=== PATIENT | female | born 1995 | race Caucasian/White ===

== ENCOUNTER 2016-11-14 14:15 | Emergency (ER) | payer MEDICAID ==
[2016-11-14 14:46] VITALS: RESP 18; O2SAT 97
--- NOTE | 2016-11-14 15:26 | UCPHY ---
H & P Time Seen by Provider: 11/14/16 14:41 Patient Type: Established HPI/ROS: CHIEF COMPLAINT: Sore throat HISTORY OF PRESENT ILLNESS: 21-year-old female presents to Urgent Care by private vehicle complaining of sore throat. Patient denies dysphagia. She has had sore throat over last few days. She does have a history of strep throat in the past. Her younger sister was diagnosed with strep recently whom she is around a lot. She denies nasal congestion, rhinorrhea or cough. Denies rash. Denies abdominal pain, vomiting or diarrhea. REVIEW OF SYSTEMS: Constitutional: No fever, no chills. Eyes: No double or blurry vision. ENT: sore throat. Respiratory: No cough, no shortness of breath. Cardiac: No chest pain. Gastrointestinal: No abdominal pain, vomiting or diarrhea. Genitourinary: No dysuria. Musculoskeletal: No neck or back pain. Skin: No rashes. Neurological: No headache. Past Medical/Surgical History: Negative Social History: Single and lives in [place] Smoking Status: Former smoker Physical Exam: General Appearance: Alert, no distress. Temperature 36.7. Eyes: Pupils equal and round. Extraocular motions are all intact. ENT: Mouth: Mucous membranes moist. Mild posterior pharyngeal injection. No exudate. No muffled voice or trismus. No anterior cervical lymphadenopathy palpated. Respiratory: No wheezing, rhonchi, or rales, lungs are clear to auscultation. Cardiovascular: Regular rate and rhythm. Gastrointestinal: Abdomen is soft and nontender, no masses, no rebound or guarding, bowel sounds normal. Neurological: Alert and oriented x 3, cranial nerves II through XII grossly intact Skin: Warm and dry, no rashes. Musculoskeletal: Nontender to palpate along the cervical, thoracic or lumbar spine. Neck is supple. Extremities: Full range of motion and no peripheral edema. Psychiatric: Patient is oriented X 3, there is no agitation. Constitutional: Initial Vital Signs Temperature (C) 36.7 C 11/14/16 14:30 Heart Rate 87 11/14/16 14:30 Respiratory Rate 18 11/14/16 14:30 Blood Pressure 118/73 11/14/16 14:30 O2 Sat (%) 97 11/14/16 14:30 O2 Delivery Mode Room Air Allergies/Adverse Reactions: Penicillins Allergy (Verified 11/14/16 14:43) succinylcholine Allergy (Verified 11/14/16 14:43) Home Medications: Medication Instructions Recorded Hydrocodone/APAP 5/325 [[place] 1 - 2 tab PO Q4 PRN #30 tab 06/09/16 5/325 (*)] Ibuprofen [Motrin (*)] 600 mg PO Q6 PRN #60 tab 06/09/16 Iron Polysacch/Iron Heme Polyp 28 mg PO DAILY #30 tab 06/09/16 [Bifera] Medical Decision Making ED Course/Re-evaluation: 21-year-old female presents to urgent care with concerns of possible strep throat. Strep swab is pending. Rapid strep test was negative. The patient will call for the results of the throat culture in 48 hours. She was encouraged to return if she had any other change in symptoms or if she felt worse in any way. Differential Diagnosis: Including but not limited to strep pharyngitis, mononucleosis, viral syndrome, influenza, bronchitis, pneumonia, retropharyngeal abscess - Data Points Laboratory Results: 11/14/16 11/14/16 Unknown 15:19 Group A Strep Screen NEGATIVE (NEGATIVE) Group A Strep DNA Pending Departure - Departure Disposition: Home, Routine, Self-Care Clinical Impression: Pharyngitis Qualifiers: Pharyngitis/tonsillitis etiology: unspecified etiology Qualifier Code: (J02.9) Acute pharyngitis, unspecified Condition: Good Instructions: Pharyngitis (ED) Additional Instructions: Adult Pain & Fever Control: We recommend Acetaminophen (Tylenol) and Ibuprofen (Motrin,Advil) for pain and fever control. When fever is high or pain severe, both drugs can be used at the same time, but at different intervals. Please note the time differences. Your dose is: Acetaminophen 1000mg every 4 to 6 hours Ibuprofen 600mg every 8 hours with food Note: do not take Acetaminophen with Hydrocodone (Vicodin, Lortab) or Oycodone (Percocet). These medications also contain Acetaminophen. No more than 3000mg of Acetaminophen should be taken in 24 hours (for an adult). Call [phone] for the results of your throat culture in 48 hours. Referrals: [facility] [Outside] - As per Instructions - PQRS PQRS Measurement: Not applicable
[2016-11-14 15:58] VITALS: BP 111/64; PULSE 81; TEMP 98.6
== END 2016-11-14 15:57 | disposition home or self-care (01) ==
LOC: CED 14:15
DX: J02.9 Acute pharyngitis, unspecified (principal); Z87.891 Personal history of nicotine dependence
CPT/HCPCS: 87880-PO; 99214-PO; G0463-PO

== ENCOUNTER 2017-07-23 12:31 | Emergency (ER) | payer MEDICAID ==
--- NOTE | 2017-07-23 12:44 | EDPHY ---
H & P Time Seen by Provider: 07/23/17 12:38 HPI/ROS: CHIEF COMPLAINT: Finger laceration HISTORY OF PRESENT ILLNESS: The patient is a 21-year-old female who comes to the emergency department complaining of a laceration to the dorsal aspect of her right middle finger. She was using a mandolin at home when she sliced her finger. This happened about 30 minutes ago. The bleeding has now stopped. REVIEW OF SYSTEMS: Constitutional: denies: chills, fever, recent illness, recent injury EENTM: denies: blurred vision, double vision, nose congestion Respiratory: denies: cough, shortness of breath Cardiac: denies: chest pain, irregular heart rate, lightheadedness, palpitations Gastrointestinal/Abdominal: denies: abdominal pain, diarrhea, nausea, vomiting, blood streaked stools Genitourinary: denies: dysuria, frequency, hematuria, pain Musculoskeletal: denies: joint pain, muscle pain Skin: See HPI Neurological: denies: headache, numbness, paresthesia, tingling, dizziness, weakness Hematologic/Lymphatic: denies: blood clots, easy bleeding, easy bruising Immunologic/allergic: denies: HIV/AIDS, transplant EXAM: GENERAL: Well-appearing, well-nourished and in no acute distress. HEAD: Atraumatic, normocephalic. EYES: Pupils equal round and reactive to light, extraocular movements intact, sclera anicteric, conjunctiva are normal. ENT: TMs normal, nares patent, oropharynx clear without exudates. Moist mucous membranes. NECK: Normal range of motion, supple without lymphadenopathy or JVD. LUNGS: Breath sounds clear to auscultation bilaterally and equal. No wheezes rales or rhonchi. HEART: Regular rate and rhythm without murmurs, rubs or gallops. ABDOMEN: Soft, nontender, normoactive bowel sounds. No guarding, no rebound. No masses appreciated. BACK: No CVA tenderness, no spinal tenderness, step-offs or deformities EXTREMITIES: Normal range of motion, no pitting or edema. No clubbing or cyanosis. NEUROLOGICAL: Cranial nerves II through XII grossly intact. Normal speech, normal gait. 5/5 strength, normal movement in all extremities, normal sensation PSYCH: Normal mood, normal affect. SKIN: Avulsion laceration to right middle finger over the middle phalanx. No joint involvement. To 3 mm deep. Bleeding controlled. No remaining tissue available for repair. Source: Patient Exam Limitations: No limitations - Personal History Current Tetanus/Diphtheria Vaccine: Yes Tetanus Vaccine Date: 2015 - Medical/Surgical History Hx Asthma: Yes Hx Chronic Respiratory Disease: No Hx Diabetes: No Hx Cardiac Disease: No Hx Renal Disease: No Hx Cirrhosis: No Hx Alcoholism: No Hx HIV/AIDS: No Hx Splenectomy or Spleen Trauma: No Other PMH: asthma. surg-none - Family History Significant Family History: No pertinent family hx - Social History Smoking Status: Former smoker Alcohol Use: Sober Drug Use: None Constitutional: Initial Vital Signs Temperature (C) 36.9 C 07/23/17 12:44 Heart Rate 95 07/23/17 12:44 Respiratory Rate 18 07/23/17 12:44 Blood Pressure 136/99 H 07/23/17 12:44 O2 Sat (%) 97 07/23/17 12:44 O2 Delivery Mode Room Air Allergies/Adverse Reactions: Penicillins Allergy (Verified 07/23/17 12:43) succinylcholine Allergy (Verified 07/23/17 12:43) Home Medications: Medication Instructions Recorded NK [No Known Home Meds] 07/23/17 Medical Decision Making ED Course/Re-evaluation: The patient's laceration is not amenable to suturing. It was cleaned and then dressed with Surgicel. We discussed wound care treatment. Differential Diagnosis: Partial list of the Differential diagnosis considered include but were not limited to; laceration, avulsion and although unlikely based on the history and physical exam, I also considered foreign body, bone or joint injury . I discussed these differential diagnoses and the plan with the patient as well as the usual and expected course. The patient understands that the diagnosis is provisional and that in medicine we are not always correct and that further workup is often warranted. Usual and customary warnings were given. All of the patient's questions were answered. The patient was instructed to return to the emergency department should the symptoms at all worsen or return, otherwise to followup with the physician as we discussed. Departure - Departure Disposition: Home, Routine, Self-Care Clinical Impression: Laceration of right middle finger Qualifiers: Encounter type: initial encounter Damage to nail status: without damage Foreign body presence: without foreign body Qualified Code(s): S61.212A - Laceration without foreign body of right middle finger without damage to nail, initial encounter Condition: Fair Instructions: Laceration (ED) Referrals: NONE *PRIMARY CARE P,. [Primary Care Provider] - 3-4 days, if not improved
[2017-07-23 12:46] VITALS: BP 136/99; PULSE 95; RESP 18; TEMP 98.4; O2SAT 97
== END 2017-07-23 13:02 | disposition home or self-care (01) ==
LOC: CED 12:31
DX: S61.212A Laceration without foreign body of right middle finger without damage to nail, initial encounter (principal); J45.909 Unspecified asthma, uncomplicated; Z87.891 Personal history of nicotine dependence; W26.8XXA Contact with other sharp object(s), not elsewhere classified, initial encounter; Y92.009 Unspecified place in unspecified non-institutional (private) residence as the place of occurrence of the external cause

== ENCOUNTER → 2018-03-18 | Outpatient (CLI) | payer MEDICAID | LOC: FIMAGING 13:04 | PROVIDERS: ATTEND Midwife | DX: O44.22 Partial placenta previa NOS or without hemorrhage, second trimester (principal); O26.892 Other specified pregnancy related conditions, second trimester; O09.212 Supervision of pregnancy with history of pre-term labor, second trimester; N85.6 Intrauterine synechiae; Z3A.22 22 weeks gestation of pregnancy ==

== ENCOUNTER → 2018-06-10 | Outpatient (CLI) | payer MEDICAID | LOC: FIMAGING 13:09 | PROVIDERS: ATTEND Obstetrics & Gynecology | DX: O44.43 Low lying placenta NOS or without hemorrhage, third trimester (principal); Z3A.34 34 weeks gestation of pregnancy ==

== ENCOUNTER 2018-06-21 03:36 | Inpatient (IN) | payer MEDICAID ==
[2018-06-21] MEDS ORDERED: BETAMETHASONE 30 MG/5 ML VIAL IM ONE (04:15)
[2018-06-21] MEDS ORDERED: LR 2,000 ML IV ONE (04:30)
[2018-06-21] MEDS ORDERED: LIDOCAINE 1% 300 MG/30 ML SDV SC PRN (10:24)
[2018-06-21] MEDS ORDERED: TERBUTALINE SULFATE 1 MG/ML VIAL IV PRN (10:24)
[2018-06-21] MEDS ORDERED: MISOPROSTOL 200 MCG TAB PO PRN (10:24)
[2018-06-21] MEDS ORDERED: OXYTOCIN/RINGERS LACTATE 1,000 ML IV PRN (10:24)
[2018-06-21] MEDS ORDERED: AMMONIA AROMATIC 1 EACH AMP IH PRN (10:24)
[2018-06-21] MEDS ORDERED: IBUPROFEN 600 MG TAB PO PRN (10:24)
[2018-06-21] MEDS ORDERED: LR 1,000 ML IV PRN (10:24)
[2018-06-21] MEDS ORDERED: OLIVE OIL 118 ML BTL MISC PRN (10:24)
[2018-06-21] MEDS ORDERED: EPSOM SALT 454 GM TP PRN (10:24)
[2018-06-21 10:57] LABS: PLATELET COUNT 263 10^3/uL (150-400)
--- NOTE | 2018-06-21 11:33 | GHP ---
DATE OF ADMISSION: 06/21/2018 ADMITTING DIAGNOSES: 1. Intrauterine at 35 weeks and 4 days. 2. contractions. 3. History of delivery x2. HISTORY OF PRESENT ILLNESS: Patient is a 22-year-old, G3, para 0-2-0-2 at 35 weeks 4 days with estimated due date 07/22/2018, by LMP 10/15/2017 and consistent with first trimester ultrasound at 8 weeks 6 days. Patient presents to Labor and Delivery with complaints of contractions starting around 1:30 this morning. They have been progressively getting closer and now every 3-5 minutes apart. Patient gets her care at [facility] and was not told they do not deliver at [facility] anymore. Patient states contractions are uncomfortable, pain is a 6/10. Patient denies any leakage of fluid or vaginal bleeding. She denies any abnormal discharge, foul odor, or itch. Patient denies any dysuria, or cloudy, foul-smelling urine. Patient states good movement noted, they are having a girl. Patient has good care at [facility] and presented in her first trimester. is complicated by history of labor and delivery with previous pregnancies x2 at 36 weeks. Patient declined vaginal/IM progesterone. Patient had a low-lying placenta on anatomy scan that resolved on ultrasound at 33 weeks 4 days per [facility]. Patient has history of asthma, as well as anxiety, not taking any medications currently. 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 Patient did receive Tdap. GBS culture is negative. PAST OB HISTORY: In February 2015, she had a vacuum assisted vaginal delivery at 36 weeks 5 days, a viable female . In May 2016, she had a normal spontaneous vaginal delivery at 36 weeks 1 day, a viable male infant. PAST INDUSTRIAL DESIGNER HISTORY: Age of menarche is 12. Cycles are regular, every 28 days for 5 days. Patient denies a history of abnormal Pap smears. She did not have a Pap smear in this . Patient has HSV type 1, but denies exposure to any other STDs. GC and chlamydia cultures were negative in this . CURRENT MEDICATIONS: Include vitamins, DHA, and acyclovir. ALLERGIES: Penicillins, succinylcholine. MEDICAL HISTORY: Remarkable for asthma and anxiety. PAST SURGICAL HISTORY: Unremarkable. FAMILY HISTORY: Unremarkable. SOCIAL HISTORY: Patient is . She lives with her and their daughter and son. They live in [facility] [place]. She denies any alcohol, tobacco, or illicit drug use during this . REVIEW OF SYSTEMS: 10-point review of systems is negative. Pertinent positives noted in HPI. LABS: A-positive, antibody negative. First trimester H and H, 14.1 and 40.3. Varicella is immune. Rubella immune. RPR nonreactive. Urine culture negative. HIV negative. Hepatitis B surface antigen negative. GC and chlamydia cultures negative. TSH 1.12. 1 hour Glucola 88. H and H in third trimester, 12.5 and 36.6. GBS culture is negative. LABORATORY: WBC 9.31. H and H, 12 and 35.6. Clean-catch UA reveals trace leuks , 5-10 WBCs and trace bacteria. EXAM: On admission: VITAL SIGNS: Stable. Patient is afebrile at 37.4, heart rate 74, respirations 16, blood pressure 117/76. GENERAL: Well-nourished, well -developed female, alert and oriented x3. No apparent distress. SKIN: Warm, dry without rash. NEURO: Grossly intact. CARDIOVASCULAR: Regular rate and rhythm. LUNGS: Clear to auscultation bilaterally. ABDOMEN: Gravid, soft, nontender. PELVIC: Initially was found to be 3-4 cm dilated, 50% effaced, -2 station, and intact. EXTREMITIES: Normal to inspection without calf tenderness or edema. heart tones: Category 1 strip. Baseline 140 beats per minute. Positive accelerations. No decelerations. Moderate variability. On [place], she is garry every 3-5 minutes. ASSESSMENT/PLAN: Patient is a 22-year-old G3, Para 0-2-0-2 with contractions and a history of delivery x2 1. Admit to Labor and Delivery for observation. 2. Records from [facility] requested. 3. Patient was re-examined about 2 hours after admission around 0530, and found to be 3-4 cm by Rn-cervix unchanged. Patient received 2 L of fluids and first dose of steroids at 0500 this am. 4. On my exam, now 6 hours after admission, there has been no cervical change despite contractions every 3-4 minutes. 5. GBS culture is negative, so no prophylactic antibiotics are needed if patient goes into labor. 6. heart tones are Category 1 tracing, reassuring. 7. Will send urine for C&S. 8. Patient was given options of staying here in the hospital for continued observation until second dose of steroids due at 0500 hours in the morning versus being discharged home and then follow up in [place] with her OB physician for second dose of steroids. Patient desires to deliver at [facility] and wants to stay here for continued observation secondary to a [place]-[address] from [facility] [place] and her history of delivery x 2. 9. Plan continue close observation at this time and monitor for any cervical change. /[id number]/MODL MTDD
[2018-06-21] MEDS ORDERED: LIDOCAINE 1% 300 MG/30 ML SDV ONE (13:05)
[2018-06-21] MEDS ORDERED: TERBUTALINE SULFATE 1 MG/ML VIAL ONE (13:06)
[2018-06-21] MEDS ORDERED: OXYTOCIN 10 UNIT/ML VIAL ONE (13:06)
[2018-06-21] MEDS ORDERED: OLIVE OIL 118 ML BTL ONE (13:06)
[2018-06-21] MEDS ORDERED: AMMONIA AROMATIC 1 EACH AMP IH ONE (13:06)
[2018-06-21] MEDS ORDERED: MISOPROSTOL 200 MCG TAB ONE (13:07)
[2018-06-22] MEDS ORDERED: BETAMETHASONE 30 MG/5 ML VIAL IM PRN (04:16)
--- NOTE | 2018-06-22 12:42 | OBPROG ---
Labor Progress Note Assessment/Plan: Assessment: 22 yo at 35w5d here for threatened labor, dilated to 3-4cm, with history of PTD at 36 wks x 2. Now through 2 doses of BMZ as of 0500 this AM. Still garry irregularly, but improved in frequency and intensity from admission. Intact, little to no bleeding. Had a long discusssion re continued observation here inpatient vs discharge home with f/u as OP. She'd prefer to go home. Precautions reviewed for returning to L&D. She would like to transfer her care to [facility] and delivery here - [facility] records faxed to our office and New OB appointment set up for 06/24/[address] Castillo. JM Subjective/Intrapartum Course: Juanita is feeling better this AM - still feeling some ctx's, but in general they're less painful and less frequent. Would be fine with going home, did get rechecked at 0500 this AM and again unchanged from admission. Objective: 06/21/18 10:40 Patient ABO/Rh A POSITIVE 06/21/18 10:40 - SVE Dilation (cm): 3 Effacement (%): 50 Station: -2 Membranes: Intact - Contraction Pattern Assessment Current Contraction Pattern: Irregular - FHR Assessment Goff FHR (bpm): 135 FHR Pattern Variability: Moderate FHR Category: 1 Oxytocin Orders Assessment - Pre-Induction/Augmentation Assessment Gestational Age: 35 week(s) and 4 day(s) ICD10 Worksheet Patient Problems: Problems Problem Status Onset H/O delivery, currently Acute contractions Acute Vaginal delivery Acute
== END 2018-06-22 11:00 | disposition home or self-care (01) | DRG 565 ==
LOC: FLD 03:36 → OBSVTOIN 10:31
PROVIDERS: ADMIT Obstetrics & Gynecology; ATTEND Obstetrics & Gynecology
DX: O47.03 False labor before 37 completed weeks of gestation, third trimester (principal); O98.513 Other viral diseases complicating pregnancy, third trimester; Z3A.35 35 weeks gestation of pregnancy; O09.212 Supervision of pregnancy with history of pre-term labor, second trimester; B00.9 Herpesviral infection, unspecified
CPT/HCPCS: J0702; J2590; J3105

== ENCOUNTER 2018-06-24 03:21 | Observation (INO) | payer MEDICAID ==
[2018-06-24] MEDS ORDERED: LR 1,000 ML IV ONE (03:49)
[2018-06-24] MEDS ORDERED: LR 1,000 ML IV SCH (04:00)
[2018-06-24 04:23] LABS: PLATELET COUNT 250 10^3/uL (150-400)
--- NOTE | 2018-06-24 10:28 | GHP ---
DATE OF ADMISSION: 06/24/2018 ADMITTING DIAGNOSES: 1. Intrauterine at 36 weeks. 2. Vaginal bleeding. 3. contractions with unchanged cervix. HISTORY OF PRESENT ILLNESS: The patient is a 22-year-old 3, para 0-2-0- 2 at 36 weeks, estimated due date 07/22/2018 by LMP 10/15/2017, consistent with first trimester ultrasound 8 weeks 6 days. The patient presents to Labor and Delivery this morning with complaints of bright red vaginal bleeding at 2 a.m. The patient states it woke her up out of bed, when she noticed a gush of fluid. She was excited, thinking it was amniotic fluid and looked down and was concerned because it was bright red blood. She passed a large clot while here on L&D. The patient states contractions are about the same, every 3-5 minutes, not anymore painful then they have been. Denies any other abdominal pain. She does endorse some low back pain that is new. The patient states there is good movement. Patient gets her care at [facility] but wants to transfer here to [facility]. She has an appointment today at [facility] at 11:00 for a new OB. complicated by history of labor/ delivery with previous pregnancies x2 at 35 and 36 weeks. Patient declined vaginal/IM progesterone with this . The patient had a low-lying placenta on anatomy scan that resolved on ultrasound at 33 weeks 4 days per [facility]. The patient has a history of anxiety, not taking any medications currently. The patient had blood work done showing positive HSV type 1, but patient denies any oral or genital lesions and was recently started on prophylaxis with acyclovir, but this medication makes her nauseous. The patient received Tdap. GBS culture is negative. PAST OB HISTORY: In February 2015, she had a vaginal delivery at 35 weeks 5 days, a viable male infant. In May 2016, she had a normal spontaneous vaginal delivery at 36 weeks 1 day, a viable female . PAST BINGO FLOATER HISTORY: Age of menarche is 12. Cycles are regular, every 28 days for 5 days. Patient denies a history of abnormal Pap smears. She did not have a Pap smear in this . The patient had blood work showing positive herpes simplex virus type 1, but denies any oral or genital lesions. Denies exposure to any other STDs. GC and chlamydia cultures were negative in this . CURRENT MEDICATIONS: Include vitamins, DHA. ALLERGIES: Penicillins, succinylcholine. MEDICAL HISTORY: Remarkable for asthma, anxiety. PAST SURGICAL HISTORY: Unremarkable. FAMILY HISTORY: Unremarkable. SOCIAL HISTORY: Patient is . She lives with her and their daughter and son. They live in [facility]. She denies any alcohol, tobacco, or illicit drug use currently during this . REVIEW OF SYSTEMS: Ten-point review of systems is negative. Pertinent positives noted in HPI. LABS: Again, A-positive, antibody negative. First trimester H and H 14.1, 40.3. Varicella is immune. Rubella immune. RPR nonreactive. Urine culture negative. HIV negative. Hepatitis B surface antigen negative. GC/ chlamydia cultures negative. TSH 1.12. One-hour Glucola 88. H and H in 3rd trimester 12.5, 36.6. GBS culture is negative. Here today, white blood cell count 10.65, H and H 11.1, 32.2. PHYSICAL EXAMINATION: VITAL SIGNS: Stable. Patient is afebrile with a temperature of 36, heart rate 85, respirations 16, blood pressure 121/81. GENERAL: Well-nourished, well-developed female, alert and oriented x3. No apparent distress. SKIN: Warm, dry, without rash. NEURO: Grossly intact. CARDIOVASCULAR: Regular rate and rhythm. LUNGS: Clear to auscultation. ABDOMEN: Gravid, soft, nontender. PELVIC: On exam this morning, she was found to be unchanged, still 3-4 cm dilated, 60% effaced, and -3 station. She was examined 2-3 hours apart upon admission. Upon looking at her pad, she has some spotting on there. No new bleeding since she has been in hospital. EXTREMITIES: Normal to inspection, without calf tenderness or edema. heart tones: Category 1 strip. Reactive with baseline 140 beats per minute. Positive accelerations. No decelerations. Moderate variability. Contractions are every 3-6 minutes. ASSESSMENT/PLAN: Patient is a 22-year-old, G3, para 0-2-0-2, now with vaginal bleeding and contractions. 1. Admit to Labor and Delivery for observation. 2. Consult with MFM to rule out abruption or low-lying placenta. 3. There has been no cervical changes noted over the last 72 hours. Doubt bleeding is due to bloody show or multiple exams. 4. Patient is Rh positive. 5. Patient has an appointment today in our office at 11:00 for new OB visit. The patient will be taken to the office via wheelchair. 6. GBS culture is negative. 7. heart tones reveal Category 1 tracing, reactive and reassuring. 8. Continue to closely monitor for signs of labor, and/or continued bleeding. /[id number]/MODL MTDD
--- NOTE | 2018-06-24 13:54 | OBPROG ---
Labor Progress Note Assessment/Plan: Assessment: 22 y/o @ 36 weeks with second admission for PTCs (unchanged cervix), now with VB Plan: Pt is back from [facility]-spoke with Dr. Abebe that states no placental bleed is noted, but does note calcifications; she does see a ? small L adrenal bleed that does not affect antepartum management or timing of delivery, but will need to be followed up by peds and an u/s Pt is stable, states ctx's have spaced out and no further bleeding is noted Declining antiemetics for nausea FHTs - Cat I tracing, reactive Plan for discharge home with PTL and bleeding precautions Pt to make an appointment at [facility] in 1 week 06/24/18 14:01 Subjective/Intrapartum Course: 06/24/18 13:58 Pt is back in her room and feels nauseated. She is "ready to have this baby." Pt states ctx's have spaced out and has similar discomfort with her ctx's. Low back pain is slightly improved after k-pad. Good FM noted. Denies any further spotting or VB and no LOF. Objective: 06/24/18 04:15 Patient ABO/Rh A POSITIVE 06/24/18 04:15 - Contraction Pattern Assessment Current Contraction Pattern: Irregular (q2-6 min) - FHR Assessment Goff FHR (bpm): 140 FHR Pattern Variability: Moderate FHR Category: 1 - AP Antepartum Course: 06/24/18 14:02 PNC with [facility]. IUP @ 36 weeks with previous PTD at 35 and 36 weeks. GBS neg. Marginal previa resolved on u/s at 33 4/7 wks. Oxytocin Orders Assessment - Pre-Induction/Augmentation Assessment Gestational Age: 36 week(s) and 0 day(s) ICD10 Worksheet Patient Problems: Problems Problem Status Onset H/O delivery, currently Acute contractions Acute Vaginal delivery Acute
== END 2018-06-24 15:18 | disposition home or self-care (01) ==
LOC: FLD 03:21
PROVIDERS: ADMIT Obstetrics & Gynecology; ATTEND Obstetrics & Gynecology
DX: O46.93 Antepartum hemorrhage, unspecified, third trimester (principal); O09.213 Supervision of pregnancy with history of pre-term labor, third trimester; O99.283 Endocrine, nutritional and metabolic diseases complicating pregnancy, third trimester; E27.9 Disorder of adrenal gland, unspecified; Z3A.36 36 weeks gestation of pregnancy
CPT/HCPCS: 59025; 76815; G0378

== ENCOUNTER 2018-06-26 03:57 | Inpatient (IN) | payer MEDICAID ==
[2018-06-26] MEDS ORDERED: EPSOM SALT 454 GM TP PRN (04:05)
[2018-06-26] MEDS ORDERED: TERBUTALINE SULFATE 1 MG/ML VIAL IV PRN (04:05)
[2018-06-26] MEDS ORDERED: LR 1,000 ML IV PRN (04:05)
[2018-06-26] MEDS ORDERED: OXYTOCIN/RINGERS LACTATE 1,000 ML IV PRN (04:05)
[2018-06-26] MEDS ORDERED: OLIVE OIL 118 ML BTL MISC PRN (04:05)
[2018-06-26] MEDS ORDERED: IBUPROFEN 600 MG TAB PO PRN (04:05)
[2018-06-26] MEDS ORDERED: LIDOCAINE 1% 300 MG/30 ML SDV SC PRN (04:05)
[2018-06-26] MEDS ORDERED: MISOPROSTOL 200 MCG TAB PR PRN (04:05)
[2018-06-26] MEDS ORDERED: LIDOCAINE 1% 300 MG/30 ML SDV ONE (04:29)
[2018-06-26] MEDS ORDERED: OLIVE OIL 118 ML BTL ONE (04:29)
[2018-06-26] MEDS ORDERED: MISOPROSTOL 200 MCG TAB ONE (04:30)
[2018-06-26] MEDS ORDERED: OXYTOCIN 10 UNIT/ML VIAL ONE (04:30)
[2018-06-26] MEDS ORDERED: AMMONIA AROMATIC 1 EACH AMP IH ONE (04:30)
[2018-06-26] MEDS ORDERED: TERBUTALINE SULFATE 1 MG/ML VIAL ONE (04:30)
--- NOTE | 2018-06-26 04:59 | GHP ---
DATE OF ADMISSION: 06/26/2018 HISTORY UPON ADMISSION: See prior admission on 06/21/2018. Patient is a 22-year-old, G3, P 0-2-0-2, now at 36 weeks and 2 days with an estimated due date of 07/22/2018 by last menstrual period of 11/2017 and also consistent with an 8 week 6 day ultrasound. The patient has had contractions and vaginal bleeding since June 21. She has been evaluated thoroughly over the last several day s and did not DICTATION ENDED AT THIS POINT /[id number]/MODL
[2018-06-26 05:45] LABS: PLATELET COUNT 209 10^3/uL (150-400)
--- NOTE | 2018-06-26 05:48 | OBDEL ---
Info Type: Vaginal Presentation at Delivery: Vertex L&D Analgesia/Anesthesia Type: Nitrous GBS+: No Intrapartum Medications: Discontinued Medications Generic Name Dose Route Start Last Admin Trade Name Fanny PRN Reason Stop Dose Admin Ibuprofen 600 mg 06/26/18 04:05 06/26/18 05:29 Motrin PO 600 mg ONCE PRN Administration post , pain Indications for Delivery: Spontaneous Labor Vaginal Delivery - Delivery Provider Delivery Physician/CNM: Mary Castillo - Labor and Delivery Onset of Contractions Date: 06/26/18 Onset of Contractions Time: 00:01 Onset of Contractions Type: Spontaneous Rupture of Membranes Date: 06/26/18 Rupture of Membranes Time: 04:50 Rupture of Membranes Type: Spontaneous Amniotic Fluid Color: Bloody Dilation Complete Date: 06/26/18 Dilation Complete Time: 04:51 Placenta Delivery Date: 06/26/18 Placenta Delivery Time: 05:01 Total Hours of Labor: 5 Laceration: Other (Specify) (none) Vaginal Sponge Count Correct: Yes Vaginal Needle Count Correct: Yes Vaginal Sweep Performed: Yes EBL: 400 Delivery Events: Other (Specify) (heavier BRB with admit than normal bloody show ) - Medications Labor Augmentation/Induction Methods Used: None Data JOEY: 07/22/18 Gestational Age: 36 week(s) and 2 day(s) Goff Delivery Date: 06/26/18 Delivery Time: 04:57 Sex of Infant: Male Score (1 Min): 9 Score (5 Min): 10 ICD10 Worksheet Patient Problems: Problems Problem Status Onset Placental abruption Acute (spontaneous vaginal delivery) Acute
[2018-06-26] MEDS: ACETAMINOPHEN 325 MG TAB PO SCH ×3 (06:50→18:11)
--- NOTE | 2018-06-26 07:19 | GHP ---
DATE OF ADMISSION: 06/26/2018 HISTORY UPON ADMISSION: The patient is a 22-year-old, G 3, P 0-2-0-2, at 36 weeks' and 2 days' by an estimated due date of 07/22/2018, by last menstrual period, consistent with an 8+ week ultrasound. The patient reports spontaneous onset of more painful contractions approximately midnight. The patient reports increased vaginal bleeding approximately 2 a.m. The patient was having good movement, and upon admission, initial exam at approximately 4 o'clock, the patient was 8 cm dilated, 70% to 80% effaced, at -1 station. Bag of water was still intact. The patient had felt bleeding that was bright red and moderately heavy. The patient has had increased issues since June 21, at which time she was having more contractions and the onset of vaginal bleeding. The patient has been evaluated several times on labor and delivery and has been 3-4 cm dilated, 70% effaced. She did not have progression and contractions did not increase. The bleeding was stable. The patient had an ultrasound with the specialist on 06/24/2018 at which time, they did not see any obvious signs of abruption or previa. The placenta was felt to be low lying earlier in , but that had resolved at 33 weeks' per MFM. Again, the cervix had not changed from 3-4 cm on June 24, and the patient was discharged home again. PAST MEDICAL HISTORY: Asthma since childhood. The patient uses an inhaler occasionally, been symptomatic and used it with bronchitis earlier this year. History of anxiety. PAST SURGICAL HISTORY: Unremarkable. PAST OBSTETRIC HISTORY: In February 2015, a vacuum-assisted vaginal delivery at 35 weeks', 5 days' with a viable male. In May 2016, spontaneous vaginal delivery at 36 weeks' and 1 day of a viable female. Due to the delivery with her 1st, the patient was advised and took progesterone during her 2nd , but did not have any appreciable change in delivery timing and the patient was advised to do progesterone again this , but declined. PAST FOOT CASTER HISTORY: Menarche at the age of 12. Denies history of abnormal Pap smears. Did not have a Pap smear during this . 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 The patient has never had vaginal or vulvar lesions or cold sores. Denies other STDs. CURRENT HISTORY: The patient has been with [facility] for her prior pregnancies and throughout this , but had not been advised that [facility] was not delivering at this hospital. When the patient became aware of this, she transferred care to [facility] on June 24. The patient had compliant care. Of note, on the [facility] u/s on 06/24 they felt concern for possible adrenal mass. needs f/u LABS: Maternal blood type A positive with negative antibody screen. RPR nonreactive. Rubella immune. Hepatitis B surface antigen negative. HIV negative. Initial H and H were 14 and 40, with followup later in , 12.5 and 36. Varicella is immune. Urine culture negative. Gonorrhea and chlamydia negative. No Pap smear performed. TSH normal. One-hour Glucola normal. GBS culture was negative. SOCIAL HISTORY: The patient is and stays at home with the kids. She lives with her and their other 2 children. The patient is a nonsmoker. No alcohol, marijuana, or other drug use. CURRENT MEDICATIONS: vitamins, DHA. ALLERGIES: Penicillin and succinylcholine. PHYSICAL EXAMINATION: GENERAL: Upon admission, the patient is a well-developed , well-nourished, white female in [id number] distress with contractions. The patient reports nausea, but no emesis. VITAL SIGNS: Initial blood pressure is 80s over 60s, up to 100 over 70s. The patient is afebrile. heart tones reveal a category 1 tracing, with baseline in the 140s to 150s with moderate variability and accelerations. No decelerations noted. Contractions approximately every 2-3 minutes. PELVIC: The patient has a moderate amount of blood on her inner thighs and vaginally, having moderate-to -heavy bloody show. Initial exam per RN was 8 cm dilated, and upon my arrival at the hospital approximately 4:25, the patient was 9 cm, 100% effaced, at -1 station. Bulging bag of water. EXTREMITIES: Nontender and no edema. ASSESSMENT: Intrauterine at 36 weeks' and 2 days' with active labor. History of deliveries x2. GBS negative. Of note, the ultrasound performed on 06/24/2018, by Dr. Abebe of [facility] and Medicine Department revealed a question of an adrenal mass on the baby. This is to be followed up through the cpr instructor. PLAN: Expect vaginal delivery eminently. /[id number]/MODL MTDD
--- NOTE | 2018-06-26 11:38 | OBPP ---
Progress Note Assessment/Plan: Assessment: 22 y/o PPD #0 s/p doing well Plan: support and routine PPC. 06/26/18 11:37 Subjective/ Course: 06/26/18 11:34 Pt is doing well today. She has min cramping controlled with Ibuprofen. She is ambulating and voiding and has min lochia. Breast feeding is going well and baby is good. Objective: 06/26/18 04:30 Patient ABO/Rh A POSITIVE 06/26/18 04:30 Temp Pulse Resp BP Pulse Ox 37.0 C 96 20 92/58 L 06/26/18 08:14 06/26/18 08:14 06/26/18 08:14 06/26/18 08:14 Uterine Position/Fundal Height: Umbilicus -3 Uterine Tone: Firm Physical Exam - Physical Exam General Appearance: alert, no apparent distress Neck: non-tender, full range of motion, supple Respiratory: chest non-tender, lungs clear, normal breath sounds Cardiac/Chest: regular rate, rhythm Abdomen: normal bowel sounds Extremities: swelling (no), Alesia's sign (neg)
[2018-06-26] MEDS: IBUPROFEN 600 MG TAB PO SCH ×2 (12:04→18:18)
[2018-06-26] MEDS: DOCUSATE SODIUM 100 MG CAP PO PRN (14:03)
[2018-06-27] MEDS: IBUPROFEN 600 MG TAB PO SCH ×4 (00:42→18:30)
[2018-06-27] MEDS: ACETAMINOPHEN 325 MG TAB PO SCH ×4 (06:05→18:31)
[2018-06-27] MEDS: DOCUSATE SODIUM 100 MG CAP PO PRN (12:24)
--- NOTE | 2018-06-27 18:34 | OBPP ---
Progress Note Assessment/Plan: Assessment:22 yo PPD#1 s/p at 36w2d, anemia, otherwise doing well Plan: Continue routine pp cares, start po iron supplement. Ariane Byrne MD, [facility] 06/27/18 18:57 Subjective/ Course: 06/26/18 11:34 Pt is doing well today. She has min cramping controlled with Ibuprofen. She is ambulating and voiding and has min lochia. Breast feeding is going well and baby is good. 06/27/18 19:06 Pt doing well. Ambulating, voiding, baldo reg diet and without difficulty. Min to mod lochia. Discomfort controlled with po ibuprofen and tylenol. Objective: 06/27/18 05:55 Patient ABO/Rh A POSITIVE 06/26/18 04:30 Temp Pulse Resp BP Pulse Ox 36.7 C 84 16 113/72 06/27/18 08:00 06/27/18 08:00 06/27/18 08:00 06/27/18 08:00 Gen - pleasant female, NAD CV - RRR chest - CTAB abd - soft, NT, fundus firm at u-3, + BS ext - calves NT, trace edema Uterine Position/Fundal Height: Umbilicus -3 Uterine Tone: Firm
[2018-06-27] MEDS: FERROUS SULFATE 140 MG TAB.ER PO SCH (19:33)
[2018-06-28] MEDS: ACETAMINOPHEN 325 MG TAB PO SCH ×2 (00:59→06:14)
[2018-06-28] MEDS: IBUPROFEN 600 MG TAB PO SCH ×2 (00:59→06:14)
[2018-06-28 08:09] VITALS: BP 102/73
[2018-06-28] MEDS: FERROUS SULFATE 140 MG TAB.ER PO SCH (10:36)
--- NOTE | 2018-06-28 12:36 | OBGCSDC ---
General Delivery Information - General Info : 3 Para: 3 Abortions: 0 Type: Vaginal L&D Analgesia/Anesthesia Type: Nitrous Admission Date: 06/26/18 Labs: Patient ABO/Rh A POSITIVE 06/26/18 04:30 Hct 28.0 % (38.0-47.0) L 06/27/18 05:55 - Hospital Course : 06/26/18 11:34 Pt is doing well today. She has min cramping controlled with Ibuprofen. She is ambulating and voiding and has min lochia. Breast feeding is going well and baby is good. 06/27/18 19:06 Pt doing well. Ambulating, voiding, baldo reg diet and without difficulty. Min to mod lochia. Discomfort controlled with po ibuprofen and tylenol. Vaginal - Delivery Provider Delivery Physician/CNM: Mary Castillo - Diagnosis Labor: Spontaneous Rupture of Membranes Type: Spontaneous Amniotic Fluid Color: Bloody Laceration: Other (Specify) (none) Delivery Events: Other (Specify) (heavier BRB with admit than normal bloody show ) - Delivery EBL: 400 [place] Data JOEY: 07/22/18 Gestational Age: 36 week(s) and 4 day(s) Goff Delivery Date: 06/26/18 Delivery Time: 04:57 Sex of : Female Winston Weight (gm): 2816 g Score (1 Min): 9 Score (5 Min): 10 Discharge Information - Discharge Information Condition: Good Instruction/Follow Up: See Instruction Sheet, Four Weeks, Six Weeks
--- NOTE | 2018-06-28 12:36 | OBPP ---
Progress Note Assessment/Plan: Assessment: PPD2 s/p - 22 yo now . - Ready for home, fu with us 4 and 6 wks. - A pos, Rubella and VZV immune, GBS neg. JM 06/28/18 12:57 Subjective/ Course: 06/26/18 11:34 Pt is doing well today. She has min cramping controlled with Ibuprofen. She is ambulating and voiding and has min lochia. Breast feeding is going well and baby is good. 06/27/18 19:06 Pt doing well. Ambulating, voiding, baldo reg diet and without difficulty. Min to mod lochia. Discomfort controlled with po ibuprofen and tylenol. 06/28/18 12:55 Doing great - ready for home, not needing narcs. BF going well. Objective: 06/27/18 05:55 Patient ABO/Rh A POSITIVE 06/26/18 04:30 Temp Pulse Resp BP Pulse Ox 36.2 C 82 16 102/73 100 06/28/18 08:00 06/28/18 08:00 06/28/18 08:00 06/28/18 08:00 06/28/18 08:00 Laboratory Tests 11/21/15 12/20/17 06/18/18 14:56 10:44 09:54 Hct Rubella IgG Antibody 40.70 VZV IgG Antibody POSITIVE Group B Strep DNA NEGATIVE Patient ABO/Rh Antibody Screen 06/26/18 06/26/18 06/27/18 04:30 04:30 05:55 Hct 37.9 L 28.0 L Rubella IgG Antibody VZV IgG Antibody Group B Strep DNA Patient ABO/Rh A POSITIVE Antibody Screen NEGATIVE
== END 2018-06-28 13:32 | disposition home or self-care (01) | DRG 560 ==
LOC: FLD 03:57 → OBSVTOIN 04:14 → FOB 07:53
PROVIDERS: ADMIT Obstetrics & Gynecology; ATTEND Obstetrics & Gynecology
PROC: 10E0XZZ Delivery of Products of Conception, External Approach (ICD-10-PCS; principal; 2018-06-26)
DX: O60.14X0 Preterm labor third trimester with preterm delivery third trimester, not applicable or unspecified (principal); O46.93 Antepartum hemorrhage, unspecified, third trimester; Z37.0 Single live birth; Z3A.36 36 weeks gestation of pregnancy
CPT/HCPCS: J2590; J3105

== ENCOUNTER 2018-09-25 11:51 | Observation (INO) | payer MEDICAID ==
[2018-09-25] MEDS ORDERED: NS 1,000 ML IV ONE (15:13)
[2018-09-25 15:22] LABS: PLATELET COUNT 354 10^3/uL (150-400)
--- NOTE | 2018-09-25 16:08 | EDPHY ---
HPI/HX/ROS/PE/MDM Narrative: CLINICAL IMPRESSION: Acute appendicitis ASSESSMENT/PLAN: 22-year-old female, 3 months presents to the emergency department with 24 hr of right lower quadrant abdominal pain associated with nausea vomiting and diarrhea. Vital signs stable, afebrile, and declining antiemetic and analgesics. No UTI symptoms or flank pain. Negative serum , notable leukocytosis of 15 with left shift, mild anion gap likely secondary to mild dehydration otherwise no electrolyte imbalance. Discussed pelvic ultrasound results with Radiology who identifies a positive appendicitis. Results discussed with the patient. She has been NPO since last night. She is currently breast feeding a 3-month-old. Discussed appropriate antibiotic choice of therapy with the ED attending and pharmacy. Patient reports a penicillin allergy which causes hives but has taken cephalosporins in the past. However Flagyl is not favorable for and patient was therefore given Invanz. General surgery paged and case discussed with Dr. Sánchez who will see the patient in the ED. Patient continues to decline analgesics. She was stabilized in the ED pending surgical evaluation and operative management.. DIFFERENTIAL DX: Abdominal pain includes but not limited to urinary tract infection, pyelonephritis, infection, ectopic , salpingitis, TOA, ovarian torsion, ovarian cyst, endometriosis, uterine fibroids, acute appendicitis, acute diverticulitis, small-bowel obstruction, constipation ED PROCEDURES: See lab and imaging results below ED COURSE: Labs reviewed, notable for leukocytosis of 15. Mild anion gap likely secondary to mild dehydration. No other electrolyte imbalance. Patient receiving IV fluids. Has declined antiemetics and analgesics at this time. Awaiting ultrasound results. 4:20 p.m.: Ultrasound results discussed with Dr. Vincent from Radiology. Positive appendicitis by pelvic ultrasound. Patient has leukocytosis of 15. She is breast feeding. Page to General surgery. She has been NPO since last night. CHIEF COMPLAINT: Abdominal pain, nausea vomiting and diarrhea HPI: This is a 22-year-old female 3 months who presents to the emergency department with approximately 24 hr of right lower quadrant abdominal pain associated with nausea, 5 episodes of vomiting, and 1 episode of diarrhea. Patient reports no documented fevers or chills. Pain did awaken her several times at night. She is not currently menstruating and is breast feeding a 3- month-old. No reported history of abnormal findings, ovarian cysts, uterine fibroids, and she denies . No UTI symptoms or flank pain. No abnormal vaginal discharge. She has not had anything to eat today. No ill contacts and her children ate the same food she did last night and are not ill. She did not take anything for her symptoms today and she is refusing pain and nausea medications. PMH: None reported Pertinent Past Surgical History: No prior abdominal surgery Family History: Noncontributory Social History: Currently breast feeding, nonsmoker REVIEW OF SYSTEMS: All other systems negative Constitutional: No fever, no chills, positive appetite change. ENT: No sore throat, congestion, ear pain. Cardiovascular: No chest pain, no palpitations. Respiratory: No cough, no shortness of breath. Gastrointestinal: Positive for abdominal pain, vomiting, diarrhea. Genitourinary: No hematuria, dysuria, flank pain, pelvic pain Musculoskeletal: No back pain, joint swelling, joint pain, myalgias. Skin: No rashes, color change. Neurological: No headache, dizziness, weakness. PHYSICAL EXAM: General Appearance: Alert, oriented, appropriate, cooperative, NAD, well hydrated, non-toxic appearing, VSS, no hypoxia. HEENT: Oropharynx clear is no erythema or exudates, no tonsillar hypertrophy or asymmetry. Dentition without abnormality. Neck: Supple, nontender, no lymphadenopathy, no midline pain, FROM, no meningismus. Respiratory: There are no retractions, lungs are clear to auscultation. Cardiac: Regular rate and rhythm, no murmurs or gallops. Gastrointestinal: Abdomen is soft, right lower quadrant tenderness, bowel sounds normal, no masses/hernia, no rigidity, guarding or focal peritoneal findings. Neurological: Alert and oriented x 3, CN 2-12 grossly intact Skin: Warm, dry, no rashes, no nodules on palpation. Musculoskeletal: Extremities are symmetrical, full range of motion, no tenderness, deformity, swelling, or erythema. Psychiatric: Patient is oriented X 3, there is no agitation. MEDICAL DECISION MAKING: Patient was seen independently. Secondary supervising physician at time of evaluation was Dr. Cruz . Diagnosis: Acute appendicitis. New, requires workup Summary: See Assessment and Plan for summary of ED visit Clinical lab tests: ordered / reviewed. Independent visualization of images, tracing, or specimens: No. Discussed patient with another provider: Dr. Vincent, Dr. Sánchez, Dr. Cruz Patient Progress: Stable. - Data Points Laboratory Results: Laboratory Results 09/25/18 14:45 09/25/18 14:45 09/25/18 09/25/18 09/25/18 15:30 14:45 14:45 WBC RBC Hgb Hct MCV MCH MCHC RDW Plt Count MPV Neut % (Auto) Lymph % (Auto) [place] % (Auto) Eos % (Auto) Baso % (Auto) Nucleat RBC Rel Count Absolute Neuts (auto) Absolute Lymphs (auto) Absolute Monos (auto) Absolute Eos (auto) Absolute Basos (auto) Absolute Nucleated RBC Immature Gran % Immature Gran # Sodium 142 mEq/L mEq/L (135-145) Potassium 4.2 mEq/L mEq/L (3.5-5.2) Chloride 107 mEq/L mEq/L (97-110) Carbon Dioxide 19 mEq/l L mEq/l (22-31) Anion Gap 16 mEq/L H mEq/L (6-14) BUN 15 mg/dL mg/dL (7-23) Creatinine 0.7 mg/dL mg/dL (0.6-1.0) Estimated GFR > 60 Glucose 99 mg/dL mg/dL (70-100) Calcium 10.1 mg/dL mg/dL (8.5-10.4) Beta HCG, Qual NEGATIVE Urine Color YELLOW Urine Appearance HAZY Urine pH 5.0 (5.0-7.5) Ur Specific [place] 1.025 (1.002-1.030) Urine Protein NEGATIVE (NEGATIVE) Urine Ketones 1+ H (NEGATIVE) Urine Blood 1+ H (NEGATIVE) Urine Nitrate NEGATIVE (NEGATIVE) Urine Bilirubin NEGATIVE (NEGATIVE) Urine Urobilinogen NEGATIVE EU EU (0.2-1.0) Ur Leukocyte Esterase NEGATIVE (NEGATIVE) Urine RBC 1-3 /hpf /hpf (0-3) Urine WBC 1-3 /hpf /hpf (0-3) Ur Epithelial Cells TRACE /lpf /lpf (NONE-1+) Urine Mucus 2+ /lpf H /lpf (NONE-1+) Urine Glucose NEGATIVE (NEGATIVE) 09/25/18 14:45 WBC 15.84 10^3/uL H 10^3/uL (3.80-9.50) RBC 5.04 10^6/uL 10^6/uL (4.18-5.33) Hgb 14.0 g/dL g/dL (12.6-16.3) Hct 42.1 % % (38.0-47.0) MCV 83.5 fL fL (81.5-99.8) MCH 27.8 pg L pg (27.9-34.1) MCHC 33.3 g/dL g/dL (32.4-36.7) RDW 14.1 % % (11.5-15.2) Plt Count 354 10^3/uL 10^3/uL (150-400) MPV 11.4 fL fL (8.7-11.7) Neut % (Auto) 88.0 % H % (39.3-74.2) Lymph % (Auto) 6.4 % L % (15.0-45.0) [place] % (Auto) 4.7 % % (4.5-13.0) Eos % (Auto) 0.1 % L % (0.6-7.6) Baso % (Auto) 0.4 % % (0.3-1.7) Nucleat RBC Rel Count 0.0 % % (0.0-0.2) Absolute Neuts (auto) 13.94 10^3/uL H 10^3/uL (1.70-6.50) Absolute Lymphs (auto) 1.02 10^3/uL 10^3/uL (1.00-3.00) Absolute Monos (auto) 0.74 10^3/uL 10^3/uL (0.30-0.80) Absolute Eos (auto) 0.01 10^3/uL L 10^3/uL (0.03-0.40) Absolute Basos (auto) 0.07 10^3/uL 10^3/uL (0.02-0.10) Absolute Nucleated RBC 0.00 10^3/uL 10^3/uL (0-0.01) Immature Gran % 0.4 % % (0.0-1.1) Immature Gran # 0.06 10^3/uL 10^3/uL (0.00-0.10) Sodium Potassium Chloride Carbon Dioxide Anion Gap BUN Creatinine Estimated GFR Glucose Calcium Beta HCG, Qual Urine Color Urine Appearance Urine pH Ur Specific [place] Urine Protein Urine Ketones Urine Blood Urine Nitrate Urine Bilirubin Urine Urobilinogen Ur Leukocyte Esterase Urine RBC Urine WBC Ur Epithelial Cells Urine Mucus Urine Glucose Medications Given: Discontinued Medications Sodium Chloride (Ns) 1,000 mls @ 0 mls/hr IV EDNOW ONE; Wide Open PRN Reason: Protocol Stop: 09/25/18 15:14 Last Admin: 09/25/18 15:37 Dose: 1,000 mls General Time Seen by Provider: 09/25/18 14:23 Initial Vital Signs: Initial Vital Signs Temperature (C) 36.7 C 09/25/18 11:58 Heart Rate 100 09/25/18 11:58 Respiratory Rate 16 09/25/18 11:58 Blood Pressure 118/75 09/25/18 11:58 O2 Sat (%) 98 09/25/18 11:58 O2 Delivery Mode Room Air Allergies/Adverse Reactions: Penicillins Allergy (Verified 09/25/18 11:58) succinylcholine Allergy (Verified 09/25/18 11:58) Home Medications: Medication Instructions Recorded Dha 06/21/18 06/21/18 Ferrous Sulfate [Slow Fe 140 MG 140 mg PO DAILY tab.er 06/28/18 (*)] Departure - Departure Clinical Impression: Acute appendicitis Qualifiers: Acute appendicitis type: unspecified acute appendicitis type Qualified Code(s) : K35.80 - Unspecified acute appendicitis Condition: Good Referrals: NONE *PRIMARY CARE P,. [Primary Care Provider] - As per Instructions
[2018-09-25] MEDS ORDERED: ERTAPENEM 1 GM in NS 100 ML IV ONE (16:28)
[2018-09-25] MEDS ORDERED: BUPIVACAINE 0.5% 30 ML SDV ONE (18:16)
[2018-09-25] MEDS ORDERED: ceFAZolin 1 GM/5 ML SYR ONE (18:17)
[2018-09-25] MEDS ORDERED: HEPARIN 1000 UNIT/1 ML MDV ONE (18:17)
[2018-09-25] MEDS ORDERED: LR 1,000 ML IV ONE (18:27)
--- NOTE | 2018-09-25 18:50 | PDANEPAE ---
ANE History of Present Illness acute appendicitis, here for appendectomy ANE Past Medical History - Cardiovascular History Hx Hypertension: No Hx Arrhythmias: No Hx Chest Pain: No Hx Coronary Artery / Peripheral Vascular Disease: No Hx CHF / Valvular Disease: No Hx Palpitations: No - Pulmonary History Hx COPD: No Hx Asthma/Reactive Airway Disease: Yes Hx Recent Upper Respiratory Infection: No Hx Oxygen in Use at Home: No Hx Sleep Apnea: No Pulmonary History Comment: Asthma- mild, intermittant - Neurologic History Hx Cerebrovascular Accident: No Hx Seizures: No Hx Dementia: No - Endocrine History Hx Diabetes: No - Renal History Hx Renal Disorders: No - Liver History Hx Hepatic Disorders: No - Neurological & Psychiatric Hx Hx Neurological and Psychiatric Disorders: No - Cancer History Hx Cancer: No - Congenital Disorder History Hx Congenital Disorders: No - GI History Hx Gastrointestinal Disorders: No - Chronic Pain History Chronic Pain: No - Surgical History Prior Surgeries: NA ANE Review of Systems Review of Systems: - Exercise capacity METS (RN): 4 METS ANE Patient History - Allergies Allergies/Adverse Reactions: Penicillins Allergy (Verified 09/25/18 11:58) succinylcholine Allergy (Verified 09/25/18 11:58) - Home Medications Home Medications: Vits96/Iron Fum/Folic [ Tablet] 1 tab PO DAILY #0 06/21/18 [ Last Taken 09/24/18 08:00] Ferrous Sulfate [Ferrous Sulf 325 MG (*)] 325 mg PO DAILY 09/25/18 [Last Taken 09/24/18 08:00] - NPO status NPO Since - Liquids (Date): 09/25/18 NPO Since - Liquids (Time): 02:00 NPO Since - Solids (Date): 09/24/18 NPO Since - Solids (Time): 18:30 - Anes Hx Hx Anesthesia Complications (with details): never had anesthesia - Smoking Hx Smoking Status: Former smoker - Alcohol Use Alcohol Use: Rarely - Family Anes Hx Family Hx Anesthesia Complications: Malignant hyperthermia biological mother ANE Labs/Vital Signs - Labs Result Diagrams: 09/25/18 14:45 09/25/18 14:45 - Vital Signs Blood Pressure: 108/67 Heart Rate: 81 Respiratory Rate: 16 O2 Sat (%): 98 Height: 157.48 cm Weight: 61.689 kg ANE Physical Exam - Airway Neck exam: FROM Mallampati Score: Class 2 Mouth exam: normal dental/mouth exam - Pulmonary Pulmonary: no respiratory distress, clear to auscultation - Cardiovascular Cardiovascular: regular rate and rhythym, no murmur, rub, or gallop - ASA Status ASA Status: II ANE Anesthesia Plan Anesthesia Plan: general endotracheal anesthesia (non- MH triggering anesthetic) Total IV Anesthesia: Yes
[2018-09-25] MEDS ORDERED: MIDAZOLAM 2 MG/2 ML VIAL IVP ONE (18:54)
[2018-09-25] MEDS ORDERED: MIDAZOLAM 2 MG/2 ML VIAL ONE (18:55)
[2018-09-25] MEDS ORDERED: REMIFENTANIL HCL 1 MG VIAL ONE (19:03)
[2018-09-25] MEDS ORDERED: fentaNYL 100 MCG/2 ML INJ ONE ×2 (19:03→20:46)
[2018-09-25] MEDS ORDERED: PROPOFOL/EMULSION 500 MG/50 ML BOTTLE IV ONE (19:03)
[2018-09-25] MEDS ORDERED: PROPOFOL 200 MG/20 ML VIAL ONE (19:03)
[2018-09-25] MEDS ORDERED: LIDOCAINE 2% 5 ML SDV ONE (19:13)
[2018-09-25] MEDS ORDERED: ACETAMINOPHEN 500 MG TAB PO PRN (20:19)
[2018-09-25] MEDS ORDERED: oxyCODONE IR 5 MG TAB PO PRN (20:19)
[2018-09-25] MEDS ORDERED: NALOXONE HCL 0.4 MG/ML INJ IVP PRN (20:19)
[2018-09-25] MEDS ORDERED: HYDROCODONE/APAP 5/325 TAB PO PRN (20:19)
--- NOTE | 2018-09-25 20:36 | POSTANESTH ---
Post Anesthetic Evaluation Cardiovascular Status: Normal, Stable, Similar to Pre-Op Cond Respiratory Status: Normal, Stable, Similar to Pre-op Cond. Level of Consciousness/Mental Status: Can Participate in Eval, Alert and Oriented Pain Control: Adequate, Prn Tx Ordered Nausea/Vomiting Control: Adequate, Prn Tx Ordered Complications Possibly Related to Anesthesia: None Noted
[2018-09-25] MEDS ORDERED: PROMETHAZINE HCL 25 MG/ML INJ IVP PRN (20:39)
[2018-09-25] MEDS ORDERED: DEXAMETHASONE 4 MG/ML VIAL IVP PRN (20:39)
[2018-09-25] MEDS ORDERED: ONDANSETRON 4 MG/2 ML VIAL ONE (20:39)
[2018-09-25] MEDS ORDERED: ONDANSETRON 4 MG/2 ML VIAL IVP PRN ×2 (20:39→21:13)
[2018-09-25] MEDS: fentaNYL 100 MCG/2 ML INJ IVP PRN ×2 (20:48→21:30)
[2018-09-25] MEDS ORDERED: ONDANSETRON DISINTEGRATING 4 MG TAB PO PRN (21:13)
[2018-09-25] MEDS ORDERED: HYDROmorphONE/DILAUDID 1 MG/ML INJ IVP PRN (21:13)
[2018-09-25] MEDS ORDERED: D5W 1/2 NS W/ 20 KCl/L 1,000 ML IV SCH (21:15)
--- NOTE | 2018-09-25 21:17 | POSTOPPROG ---
Post Op Note Date of Operation: 09/25/18 Surgeon: Jhon Sánchez Anesthesiologist: ANTON Anesthesia: GET(General Endotracheal) Pre-op Diagnosis: ACUTE APPENDICITIS Post-op Diagnosis: SAME Indication: PAIN Procedure: LAP APPY Findings: ACUTE APPENDICITIS NON PERFORATED Inf/Abcess present in the surg proc area at time of surgery?: Yes Depth: Organ Space EBL: Minimal Complications: NONE Specimen(s): APPENDIX
--- NOTE | 2018-09-25 21:21 | PDGENHP ---
History & Physical Chief Complaint: ABDOMINAL PAIN History of Present Illness: 22-YEAR-OLD FEMALE WITH ABDOMINAL PAIN LOCALIZED TO THE RIGHT LOWER QUADRANT TIMES 24 HR. WBC 03655. ULTRASOUND CONFIRMS ENLARGED THICKENED APPENDIX. SHE HAS HAD NAUSEA AND VOMITING OVERNIGHT AND HAS REQUIRED PAIN MEDICINE IN THE ER. RISKS AND OPTIONS BEEN FULLY DISCUSSED. ADMIT FOR LAP APPY Pertinent Past, Social, Family History: PAST MEDICAL HISTORY: / CHILDBIRTH 3 MONTHS AGO. REVIEW OF SYSTEMS -10 POINT REVIEW EXCEPT RELATED TO THE HPI. SHE DOES NOT SMOKE. SOCIAL HISTORY NONSMOKER. FAMILY HISTORY POSSIBLE MALIGNANT HYPERTHERMIA IN HER MY LOGIC MOTHER. ALLERGIES: PENICILLIN AND SUCCINYLCHOLINE POSSIBLY. MEDICATIONS VITAMINS Relevant Physical Exam: GENERAL HEALTHY 20 YEAR FEMALE NO ACUTE DISTRESS, AFEBRILE. HEENT NONICTERIC, PERRLA, NO ORAL LESIONS. NECK SUPPLE AND NONTENDER WITH FULL RANGE OF MOTION. CHEST CLEAR AND SYMMETRIC. COR REGULAR RHYTHM WITHOUT MURMURS. ABDOMEN SOFT MILDLY DISTENDED, TENDER IN THE RIGHT LOWER QUADRANT WITHOUT GUARDING, WITHOUT HERNIAS. EXTREMITIES FULL RANGE OF MOTION FULL PULSES. NEUROLOGIC PHYSIOLOGIC AND SYMMETRIC. PSYCH ALERT, ORIENTED, COOPERATIVE Cardiorespiratory Assessment: IMPRESSION: ACUTE APPENDICITIS. PLAN LAP APPY/ RISKS AND OPTIONS FULLY DISCUSSED AND SHE WISHED TO PROCEED
[2018-09-26] MEDS: OXYCODONE/APAP 5/325 TAB PO PRN ×2 (07:20→11:33)
[2018-09-26 07:42] VITALS: BP 105/65
[2018-09-26] MEDS ORDERED: PRENATAL VIT 1 EACH TAB PO SCH (08:00)
[2018-09-26] MEDS ORDERED: FERROUS SULFATE 325 MG TAB PO SCH (09:00)
--- NOTE | 2018-09-26 12:21 | SOAPPROG ---
SOAP Progress Note Assessment/Plan: Assessment: 22 y/o F s/p lap appy S: No complaints. Tolerating a regular diet and passing gas. Pain controlled. O: Alert Afebrile RRR No increased WOB Abdomen: soft, mildly ttp, nondistended, +BS Plan: D/c home today. 09/26/18 12:20 Objective: Vital Signs Temp Pulse Resp BP Pulse Ox 36.2 C 73 16 105/65 97 09/26/18 07:33 09/26/18 07:33 09/26/18 07:33 09/26/18 07:33 09/26/18 07:33 09/25/18 09/26/18 09/27/18 05:59 05:59 05:59 Intake Total 2009 Output Total 555 150 Balance 1455 -150 ICD10 Worksheet Patient Problems: Problems Problem Status Onset Acute appendicitis Acute Placental abruption Acute (spontaneous vaginal delivery) Acute
--- NOTE | 2018-09-27 04:30 | GOP ---
DATE OF OPERATION: 09/25/2018 SURGEON: Jhon Sánchez MD PTA: There was no certified teacher assistant. ANESTHESIOLOGIST: Dr. Nasim Jeffries. PREOPERATIVE DIAGNOSIS: Acute appendicitis. POSTOPERATIVE DIAGNOSIS: Acute appendicitis. PROCEDURE PERFORMED: Laparoscopic appendectomy. FINDINGS: Patient was found to have an acute suppurative, nonperforated appendicitis. ESTIMATED BLOOD LOSS: Negligible. DESCRIPTION OF PROCEDURE: The patient was taken operating room where she received a satisfactory gen eral endotracheal anesthesia. She was placed in supine position, prepped and draped in the usual betsy rile fashion. A periumbilical incision was made. A Veress needle inserted. Pneumoperitoneum was es tablished. Trocar was introduced. Laparoscope introduced. Good visualization was obtained. Two ot her trocars introduced, under direct vision in the lower abdomen. The appendix was elevated up. The mesoappendix was divided with the Harmonic Scalpel until the base was skeletonized. The appendix wa s then divided with the Endo-BRITTANI stapler, placed in a specimen bag and extracted through the upper mi dline port site. Hemostasis was assured. The wound was then closed using 0 Vicryl for the fascia an d 4-0 Monocryl subcuticular stitch for the skin. All layers infiltrated with 0.5% Marcaine. COMPLICATIONS: No complications. /[id number]/MODL
== END 2018-09-26 12:30 | disposition home or self-care (01) ==
LOC: FOB 22:03
PROVIDERS: ADMIT Surgery; ATTEND Surgery
PROC: 0DTJ4ZZ Resection of Appendix, Percutaneous Endoscopic Approach (ICD-10-PCS; principal; 2018-09-25 18:30)
DX: K35.80 Unspecified acute appendicitis (principal); E86.0 Dehydration; J45.20 Mild intermittent asthma, uncomplicated; Z87.891 Personal history of nicotine dependence; Z88.0 Allergy status to penicillin; Z88.2 Allergy status to sulfonamides; Z23 Encounter for immunization
CPT/HCPCS: 96365; G0008; J1170; J1335; J2250; J2405; J2704; J3010